=== PATIENT | male | born 1975 | race Caucasian/White ===

== ENCOUNTER → 2016-11-17 | Outpatient (CLI) | payer OTHER | END | disposition home or self-care (01) | LOC: CFH 12:17 | PROVIDERS: ATTEND Internal Medicine Nephrology | DX: I70.1 Atherosclerosis of renal artery (principal); N17.9 Acute kidney failure, unspecified; I10 Essential (primary) hypertension | CPT/HCPCS: 93975 ==

== ENCOUNTER 2018-07-07 06:01 | Day surgery (SDC) | payer OTHER ==
[~2018-07-07] VITALS: Ht 170.2 cm; Wt 57.6 kg
[2018-07-07] MEDS ORDERED: SODIUM CHLORIDE 0.9% 1,000 ML IV SCH (06:46)
[2018-07-07 06:48] VITALS: BP 144/91
[2018-07-07 07:19] LABS: PROTHROMBIN TIME 10.5 Seconds (9.6-11.5)
[2018-07-07] MEDS ORDERED: LIDOCAINE-MPF 1%, 5ML ONE (08:20)
[2018-07-07] MEDS ORDERED: MIDAZOLAM 1 MG/ML, 5ML ONE (08:32)
[2018-07-07] MEDS ORDERED: FENTANYL PF 100 MCG/2ML ONE (08:32)
[2018-07-07] MEDS ORDERED: NALOXONE 1 MG/ML, 2ML ONE (08:32)
[2018-07-07] MEDS ORDERED: FLUMAZENIL 0.1 MG/1 ML, 5ML ONE (08:32)
== END 2018-07-07 12:00 | disposition home or self-care (01) ==
LOC: OUT 06:01
PROVIDERS: ATTEND Internal Medicine Nephrology
DX: I12.9 Hypertensive chronic kidney disease with stage 1 through stage 4 chronic kidney disease, or unspecified chronic kidney disease (principal); N18.3 Chronic kidney disease, stage 3 (moderate); Z79.899 Other long term (current) drug therapy; Z79.01 Long term (current) use of anticoagulants
CPT/HCPCS: 36415; 50200; 74150; 77012; 85610; 88300; 99156; J2250; J3010; 99157; J2310

== ENCOUNTER 2020-10-24 05:57 | Day surgery (SDC) | payer OTHER ==
[~2020-10-24] VITALS: Ht 167.6 cm; Wt 60.4 kg
[2020-10-24] MEDS ORDERED: LISI-170 PO (06:51)
[2020-10-24] MEDS ORDERED: FEBU40TA PO (06:51)
[2020-10-24] MEDS ORDERED: SODIUM CHLORIDE 0.9% 1,000 ML IV SCH (07:00)
[2020-10-24 07:15] VITALS: BP 144/82
[2020-10-24 07:47] LABS: INTERNATIONAL NORMALIZED RATIO 0.94 (0.93-1.1); PROTHROMBIN TIME 10.1 Seconds (9.6-11.5)
[2020-10-24] MEDS ORDERED: LIDOCAINE 1%, 10ML ONE (08:08)
[2020-10-24] MEDS ORDERED: FLUMAZENIL 0.1 MG/1 ML, 5ML ONE (08:14)
[2020-10-24] MEDS ORDERED: MIDAZOLAM 1 MG/ML, 5ML ONE (08:14)
[2020-10-24] MEDS ORDERED: NALOXONE 1 MG/ML, 2ML ONE (08:14)
[2020-10-24] MEDS ORDERED: FENTANYL PF 100 MCG/2ML ONE (08:14)
== END 2020-10-24 10:10 | disposition home or self-care (01) ==
LOC: RAD 05:57
PROVIDERS: ATTEND Internal Medicine Nephrology
DX: I12.9 Hypertensive chronic kidney disease with stage 1 through stage 4 chronic kidney disease, or unspecified chronic kidney disease (principal); N18.32 Chronic kidney disease, stage 3b; N25.81 Secondary hyperparathyroidism of renal origin; E78.5 Hyperlipidemia, unspecified; D64.9 Anemia, unspecified; Z79.01 Long term (current) use of anticoagulants; Z79.899 Other long term (current) drug therapy; Z88.8 Allergy status to other drugs, medicaments and biological substances; Z82.49 Family history of ischemic heart disease and other diseases of the circulatory system
CPT/HCPCS: 36415; 50200; 77012; 85610; 88300; 99156; 99157; J2250; J3010; J7030; J2310